=== PATIENT | male | born 1955 | race Hispanic/Latino ===

== ENCOUNTER 2020-06-24 16:19 | Outpatient (CLI) | payer BC ==
--- NOTE | 2020-06-24 18:51 | RAD ---
THORACIC SPINE RADIOGRAPHS FOUR VIEWS: 06/24/20 PROVIDED CLINICAL HISTORY: Mid to lower thoracic spine pain. FINDINGS: Thoracic alignment appears normal. Vertebral body heights appear preserved. Multilevel thoracic spond ylosis changes are seen. Pedicles appear intact. No lytic or blastic bony lesions are apparent. IMPRESSION: Thoracic spondylosis. POS: [facility]
== END 2020-06-24 16:20 | disposition home or self-care (01) ==
LOC: SCSRAD 16:19
PROVIDERS: ATTEND Chiropractor
DX: M54.6 Pain in thoracic spine (principal); M47.814 Spondylosis without myelopathy or radiculopathy, thoracic region
CPT/HCPCS: 72072